=== PATIENT | female | born 1955 | race Caucasian/White ===

== ENCOUNTER 2021-01-20 14:00 | Outpatient (CLI) | payer BC, SELFPAY ==
--- NOTE | ~2021-01-20 | DEXA_ITS ---
Bone Density Report Name: Cristal Olsen Age: 65 Sex: Female Ethnicity: White Date of : 1955 Indication: osteopenia; hysterectomy; Referring Provider: MAYE, VICENTE Study: Bone densitometry was performed. Exam Date: January 20, 2021 Accession number: [id number] Bone Density: Region BMD T-score Z-score Classification AP Spine (L1-L4) 0.864 -1.7 0.1 Osteopenia Femoral Neck (Left) 0.809 -0.4 1.2 Normal Total Hip (Left) 0.883 -0.5 0.8 Normal Total Hip Bilateral Avg 0.854 -0.8 0.6 Normal Femoral Neck (Right) 0.708 -1.3 0.3 Osteopenia Total Hip (Right) 0.824 -1.0 0.3 Normal World Health Organization criteria for BMD impression classify patients as: Normal (T-score at or above -1.0), Osteopenia (T-score between -1.0 and -2.5), or Osteoporosis (T-score at or below -2.5). 10-year Fracture Risk(1): Major Osteoporotic Fracture 7.9% Hip Fracture 0.6% Reported Risk Factors: [place] (), Neck BMD=0.708, BMI=33.3 (1) FRAX(R) Version 3.08. Fracture probability calculated for an untreated patient. Fracture probability may be lower if the patient has received treatment. Previous Exams: Region Exam Age BMD T-score BMD Change BMD Change Date g/cm2 vs Baseline vs Previous AP Spine(L1-L4) 01/20/2021 65 0.864 -1.7 -0.136(-13.6%) -0.001(-0.1%) 02/28/2018 62 0.865 -1.7 -0.135(-13.5%) 0.001(0.1%) 09/11/2015 59 0.864 -1.7 -0.136(-13.6%) 0.055(6.8%)# 09/07/2013 57 0.809 -2.2 -0.191(-19.1%) -0.075(-8.5%)# 02/05/2011 55 0.885 -1.5 -0.115(-11.5%) -0.115(-11.5%) 07/12/2008 52 1.000 -0.4 Total Hip(Left) 01/20/2021 65 0.883 -0.5 0.015(1.7%)# 0.008(1.0%) 02/28/2018 62 0.874 -0.6 0.007(0.8%)# -0.023(-2.6%) 09/11/2015 59 0.898 -0.4 0.030(3.4%)# 0.057(6.8%)# 09/07/2013 57 0.841 -0.8 -0.027(-3.1%)# 0.019(2.3%)# 02/05/2011 55 0.822 -1.0 -0.046(-5.3%)* -0.046(-5.3%)* 07/12/2008 52 0.868 -0.6 Total Hip(Right) 01/20/2021 65 0.824 -1.0 -0.018(-2.1%)# 0.002(0.3%) 02/28/2018 62 0.822 -1.0 -0.020(-2.4%)# -0.008(-1.0%) 09/11/2015 59 0.830 -0.9 -0.012(-1.5%)# 0.015(1.9%)# 09/07/2013 57 0.814 -1.0 -0.028(-3.3%)# 0.052(6.8%)# 02/05/2011 55 0.762 -1.5 -0.080(-9.5%)* -0.080(-9.5%)* 07/12/2008 52 0.842 -0.8 *Denotes significance at 95% confidence level, LSC for AP Spine = 0.022 g/cm2, LSC for Total Hip = 0.027 g/cm2 Clinical Information Provided by Patient: Has used the following
== END 2021-01-20 14:01 | disposition home or self-care (01) ==
PROVIDERS: Visit Provider Nurse Practitioner
DX: M85.88 Other specified disorders of bone density and structure, other site (principal); M85.851 Other specified disorders of bone density and structure, right thigh
CPT/HCPCS: 77080

== ENCOUNTER 2022-05-04 11:50 | Outpatient (CLI) | payer MEDICARE, SELFPAY ==
--- NOTE | ~2022-05-04 | XR_ITS ---
EXAMINATION: XR abdomen/kub 1V INDICATION: History of kidney stones and urinary tract infection TECHNIQUE: Supine view of the abdomen is obtained. COMPARISON: 08/08/2013 FINDINGS: No urinary tract calculi are identified. A moderate volume of colonic stool is present. The bowel gas pattern is normal. There is a bone island of the left ilium. There is moderate lower lumba r spondylosis. IMPRESSION: 1. No urolithiasis identified. Reviewed, dictated and finalized at location B.
== END 2022-05-04 11:51 | disposition home or self-care (01) ==
PROVIDERS: PCP Family Medicine Sports Medicine; Visit Provider Urology
DX: Z87.442 Personal history of urinary calculi (principal)
CPT/HCPCS: 74018

== ENCOUNTER 2023-09-30 10:33 | Outpatient (CLI) | payer MEDICARE, SELFPAY ==
--- NOTE | ~2023-09-30 | DEXA_ITS ---
Bone Density Report Name: VALDEZ LONDONO Age: 67 Sex: Female Ethnicity: White Date of : 1955 Indication: postmenopausal; screening for osteoporosis; height loss; history of glucocorticoids; hysterectomy; Referring Provider: MAYE, VICENTE Study: Bone densitometry was performed. Exam Date: September 30, 2023 Accession number: [id number] Bone Density: Region BMD T-score Z-score Classification AP Spine(L1-L4) 0.788 -2.4 -0.4 Osteopenia Femoral Neck (Left) 0.738 -1.0 0.7 Normal Total Hip (Left) 0.862 -0.7 0.7 Normal Femoral Neck (Right) 0.699 -1.4 0.3 Osteopenia Total Hip (Right) 0.795 -1.2 0.2 Osteopenia Total Hip Mean 0.829 -1.0 0.5 Normal World Health Organization criteria for BMD impression classify patients as: Normal (T-score at or above -1.0), Osteopenia (T-score between -1.0 and -2.5), or Osteoporosis (T-score at or below -2.5). 10-year Fracture Risk(1): Major Osteoporotic Fracture 14% Hip Fracture 1.6% Reported Risk Factors: [place] (), Neck BMD=0.699, BMI=34.4, glucocorticoids (1) FRAX(R) Version 3.08. Fracture probability calculated for an untreated patient. Fracture probability may be lower if the patient has received treatment. Clinical Information Provided by Patient: Has taken Glucocorticoids Has used the following medications: Vitamin D Has the following medical conditions: Hysterectomy Patient maximum height was 64.0 No regular weight bearing exercise Does not regularly consume dairy products Drinks caffeinated beverages Onset of menses at age 10 Number of children 2 Impression: The patient has low bone mass, based on the Total Spine T-score. The patient has an estimated ten-year risk of hip fracture of 1.6% and an estimated ten-year risk of major fracture of 14%, based on the WHO FRAX algorithm. The patient has risk factors, including: history of glucocorticoid therapy. Discussion: BONE DENSITY IS LOW AT ONE OR MORE SKELETAL SITES. This patient's lowest T-score is low at one or more skeletal sites. It meets the World Health Organization's (WHO) criteria for ?low bone mass? (T-score between -1.0 and -2.5). The patient's 10-year risk of fracture as calculated by FRAX is less than the threshold where pharmacological therapy is recommended by the National Osteoporosis Foundation (NOF). However, all treatment decisions require clinical judgment and consideration of individual patient factors, including patient preferences, comorbidities, previous drug use, risk factors not captured in the FRAX model (e.g., frailty, falls, vitamin D deficiency, increased bone turnover, interval significant decline in bone density) and possible under or overestimation of fracture risk by FRAX. The patient should follow a healthful lifestyle (good nutrition with adequate
== END 2023-09-30 10:34 | disposition home or self-care (01) ==
LOC: ANHIMG 10:36
PROVIDERS: PCP Family Medicine Sports Medicine; Visit Provider Nurse Practitioner
DX: M85.88 Other specified disorders of bone density and structure, other site (principal)
CPT/HCPCS: 77080

== ENCOUNTER 2025-07-02 07:28 | Outpatient (CLI) | payer MEDICARE, SELFPAY ==
--- NOTE | ~2025-07-02 | MR_ITS ---
EXAMINATION: MR lumbar spine wo con DATE: 07/02/2025 08:24 INDICATION: Ankylosing spondylitis. TECHNIQUE: Magnetic resonance imaging (MRI) of the lumbar spine was performed without intravenous contrast. Sequences included sagittal T2-weighted FSE, sagittal T2-weighted FS FSE, sagittal T1-weighted FSE, and axial T2-weighted FSE. COMPARISON: None FINDINGS: There is 5 mm anterolisthesis of L5 on S1. Vertebral body heights are normal. There is mildly decreased disc height at L2-L3. The distal spinal cord signal intensity is normal. The conus medullaris is at L1. The following disc levels are specifically discussed: L1-L2: The disc is bulging. There is mild bilateral facet joint osteoarthritis. There is no neural foraminal stenosis. There is mild central canal stenosis. L2-L3: The disc is bulging. There is moderate right and mild left facet joint osteoarthritis. There is mild bilateral neural foraminal stenosis. There is mild central canal stenosis. L3-L4: The disc is bulging. There is mild right and severe left facet joint osteoarthritis. There is mild bilateral neural foraminal stenosis. There is mild central canal stenosis. L4-L5: The disc is bulging. There is severe bilateral facet joint osteoarthritis. There is mild bilateral neural foraminal stenosis. There is mild central canal stenosis. L5-S1: The disc is bulging and has an annular fissure. There is severe bilateral facet joint osteoarthritis. There is mild bilateral neural foraminal stenosis. There is mild central canal stenosis. IMPRESSION: 1. Mild lumbar spondylosis. Reviewed, dictated and finalized at location E. IMPRESSION: 1. Mild lumbar spondylosis.
--- OUTSIDE RECORDS SUMMARY | 2025-07-02 07:32 | XMS_ITS | Clinical Summary ---
Author Organization [facility] Address [address] [facility] [address] [place] [address] Phone Care Team Providers Care Chromium Plater Name Role Phone Gage Jaeger MD Primary Care Provider [phone] Allergies Active Allergy Reactions Criticality Noted Date Comments Phenazopyridine Rash 06/23/2017 Developed rash on both legs, from knees to ankles Medications amitriptyline (ELAVIL) 25 MG Tablet Take 25 mg by mouth nightly. 7 Active ergocalciferol (VITAMIN D) 11017 UNIT Capsule Take 50,000 Units by mouth. Takes twice weekly. 7 Active ESTRING 2 MG RING 1 Each by Vaginal route Every 3 months. 7 Active TOPROL XL 100 MG TABLET SR 24 HR Take 100 mg by mouth nightly. 7 Active valsartan-hydro CHLOROthiazide (DIOVAN-HCT) 160-12.5 MG Tablet Take 1 Tab by mouth nightly. 7 Active Estrogens Conjugated (PREMARIN PO) Take by mouth. A ctive Cetirizine HCl (ZYRTEC ALLERGY PO) Take by mouth. Takes as needed for allergies. Active omeprazole (PRILOSEC) 40 MG CAPSULE DELAYED RELEASE Take 1 Cap by mouth 2 times daily. 60 Cap 1 7 Active COMPOUNDED MEDICATION Nifedipine 0.4% Hydrocortisone 2.5% Xylocaine 5% Apply per rectum TID 1 Each 10/12/201 7 Active ESTROGENS, CONJUGATED VA by Vaginal route. Takes 1 application as needed for vaginal dryness. Active Probiotic Product (3DLT.com) Capsule Take 1 Cap by mouth daily. Active naproxen sodium (ALEVE) 220 MG Tablet Take 220 mg by mouth. Takes 2 tablets daily prn (Does not take everyday) Active diphenhydrAMINE (BENADRYL) 25 MG Tablet Take 25 mg by mouth every 6 hours as needed. Active Acetaminophen (TYLENOL PO) Take by mouth. Ac tive Calcium Carbonate Antacid (TUMS PO) Take by mouth as needed. Active metroNIDAZOLE (METROGEL) 0.75 % Gel Apply 2 times daily. Active raNITIdine (ZANTAC) 150 MG Tablet Take 2 Tabs by mouth nightly. 180 Tab 8 Active Family History Medical History Relation Name Comments Lung Cancer Father Heart Disease Mother Hypertension Mother Relation Name Status Comments Father Mother Social History Tobacco Use Types Packs/Day Years Used Date Smoking Tobacco: Never Smokeless Tobacco: Never Tobacco Cessation:Counseling Given: No Alcohol Use Standard Drinks/Week Comments No 0 (1 standard drink = 0.6 oz pur e alcohol) Comments No Sex and Gender Information Value Date Recorded Sex Assigned at Not on file Legal Sex Female 10:56 PM CDT Gender Identity Not on file Sexual Orientation Not on file Last Filed Vital Signs Vital Sign Reading Time Taken Comments Blood Pressure 137/81 11/29/2017 10:17 AM CDT Pulse 66 11/29/2017 10:17 AM CDT Temperature 36 C (96.8 F) 11/29/2017 10:17 AM CDT Respiratory Rate 17 11/29/2017 10:17 AM CDT Oxygen Saturation 99% 11/29/2017 10:17 AM CDT Inhaled Oxygen Concentration - - Weight 88.5 kg (195 lb) 11/10/2017 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 Height 162.6 cm (5' 4) 11/10/2017 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 Body Mass Index 33.47 11/10/2017 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 Plan of Treatment Health Maintenance Due Date Last Done Comments Hepatitis C Virus (HCV) Screening 1955 TdaP Immunization 1955 Cologuard 2000 Immunochemical Fecal Occult Blood 2000 Pneumococcal Immunization (5 0+ years) (1 of 1 - PCV) 2005 Zoster Immunization (1 of 2) 2005 Influenza Immunization (#1) 2025 SARS-COV-2 Immunization (1 - season) 2025 Colonoscopy 06/28/2027 06/28/2017 Colorectal Cancer Screening 06/28/2027 Respiratory Syncytial Virus (RSV) Immunization (Adult) (1 - 1-dose 75+ series) 2030 Hepatitis B Immunization Aged Out No longer eligible based on patient's age to complete this topic Human Papillomavirus (HPV) Immunization Aged Out No longer eligible b ased on patient's age to complete this topic Meningococcal Immunization (ACWY) Aged Out No longer eligible based on patient's age to complete this topic Rotavirus Immunization Aged Out No lo nger eligible based on patient's age to complete this topic Insurance Care Teams Chromium Plater Relationship Specialty Start Date End Date Gage Jaeger MD [facility] [place] [address] PCP - General [employer] L[employer]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
--- OUTSIDE RECORDS SUMMARY | 2025-07-02 07:32 | XMS_ITS | Patient Health Record ---
Author Organization [facility] Address [address] [place] [address] [place] [address] Support Name Relationship Address Phone VALDEZ LONDONO Guarantor Unknown [phone] ALLERGIES Allergen (clinical drug ingredient) Drug/Non Drug Allergy documented on EMR Reaction Allergy Type Onset Date Status amlodipine Norvasc Unknown Drug Allergy Active phenazopyridine Pyridium Unknown Drug Allergy A ctive Statins Support Unknown Drug Allergy A ctive REASON FOR REFERRAL No Information MEDICATIONS Medication SIG (Take, Route, Frequency, Duration) Notes Start Date End Date Status Amitriptyline HCl 50 MG 1 tablet at bedt daniela Orally Once a day for 30 day(s) Active Simvastatin 10 MG 1 tablet in the even ing Orally Once a day for 30 day(s) Active Fenofibrate 160 MG 1 tablet Orally Once a day for 30 day(s) Active Meloxicam 15 MG 1 tablet Orally Once a day for 30 day(s) Active Spironolactone-HCTZ 25-25 MG 1 tablet Or ally Once a day for 30 day(s) Active amLODIPine Besylate 10 MG 1 tablet Orall y Once a day for 30 day(s) Active Donepezil HCl 5 MG 1 tablet at bedtime Orally Once a day for 30 day(s) Active PROBLEMS Problem Type ICD Code Onset Dates Problem Status W/U Status Risk SNOMED Code Notes Problem Spondylolisthesis , lumbosacral region (M43.17) Active confirmed Acquired spondylolisthesis (810080754) Problem Sacroiliitis, not elsewhere classified (M46.1) Active confirmed Solitary sacroiliitis (613663314) Problem Spondylosis without myelopathy or radiculopathy, lumbar region (M47.816) Active confirmed Lumbosacral spondylosis without myelopathy (28149914) Problem Other intervertebral disc degeneration, lumbar region (M51.36) Active confirmed Degeneration of lumbar intervertebral disc (01512963) Problem Other intervertebral disc degeneration, lumbosacral region (M51.37) Active confirmed Degeneration of lumbosacral intervertebral disc (80036455) Problem Radiculopathy, lumbar region (M54.16) Active confirmed Lumbar radiculopathy (420859750) Problem Radiculopathy, lumbosacral region (M54.17) Active confirmed Lumbosacral radiculopathy (3894936) Problem Osseous and subluxation stenosis of intervertebral foramina of lumbar region (M99.63) Active confirmed Spinal stenosis of lumbar region (30678670) PLAN OF TREATMENT No Information Insurance Providers Payer Name Payer Address Payer Phone Subscriber Number Group Number Insured Name Patient Relationship to Insured Coverage Start Date Coverage End Date Medicare [place] [address] [address] [place] [address] [id number] VALDEZ LONDONO Self - patient is the insured [employer] MEDICARE SUPPLEMENT INSURANCE [address] [address] [place] [phone] [id number] VALDEZ LONDONO Self - patient is the insured 1 MEDICAL (GENERAL) HISTORY Medical History History ICD Code Hypertension Hyperlipidemia GERD Trigeminal Neuralgia Kidney Stones Lupus Surgical History Surgery Date(Month/Year) Tubal Ligation Hysterectomy 04/2018 Kidney Stones 2015 Right Thumb Arthroplasty 04/2010
== END 2025-07-02 07:29 | disposition home or self-care (01) ==
PROVIDERS: PCP Family Medicine
DX: M47.816 Spondylosis without myelopathy or radiculopathy, lumbar region (principal); M45.9 Ankylosing spondylitis of unspecified sites in spine
CPT/HCPCS: 72148